=== PATIENT | male | born 1980 | race Caucasian/White ===

== ENCOUNTER → 2017-02-20 | Outpatient (CLI) | payer BC | LOC: MMGSC 14:11 | PROVIDERS: ATTEND Family Medicine | DX: L73.9 Follicular disorder, unspecified (principal) | CPT/HCPCS: 87070; 87075; 87205 ==

== ENCOUNTER 2018-02-06 05:40 | Day surgery (SDC) | payer BC, OTHER ==
[2018-02-02 09:20] VITALS: BMI 34.2
[~2018-02-06 05:40] MED LIST: ALBUTEROL NEB (CONC) 2.5 MG/0.5 ML INHALATION ONE; LACTATED RINGERS 1,000 ML IV ONE; LACTATED RINGERS 1,000 ML IV SCH; LIDOCAINE 2% (PF) 20 MG/ML 2 ML AMP INHALATION ONE
[2018-02-06 06:33] VITALS: TEMP 98.9
[2018-02-06] MEDS ORDERED: LIDOCAINE 1% 20 ML VIAL (10MG/ML) FOR IV START INTRADERMA ONE (06:33)
[2018-02-06] MEDS ORDERED: PROPOFOL 10 MG/ML 20 ML VIAL IV ONE (08:54)
[2018-02-06] MEDS ORDERED: MIDAZOLAM 2 MG/2 ML VIAL ONE (08:54)
[2018-02-06] MEDS ORDERED: KETAMINE 10 MG/ML 20 ML VIAL ONE (08:54)
--- NOTE | 2018-02-06 09:21 | P.PCN ---
Date of Procedure: 02/06/18 Preoperative Diagnosis: stridor Postoperative Diagnosis: subglottic stenosis Procedure(s) Performed: flexible bronchoscopy Anesthesia: MAC Surgeon: Pati Reyes Estimated Blood Loss (ml): 0 Pathology: other Condition: stable Disposition: same day Indications for Procedure: DYSPNEA/STRIDOR Operative Findings: a 37-year-old male patient was experiencing progressive increase in dyspnea and stridor, was found to have flattening of the inspiratory and expiratory, with flow volume loop curve, suspect have recurrent subglottic stenosis, came into the bronchoscopy room to undergo a flexible bronchoscopy. This procedure was done under conscious sedation with anesthetic agents being administered by anesthesia. The patient was given a combination of ketamine and Diprivan. After achieving adequate sedation, the flexible bronchoscope was introduced into the right nostril and pleasant with the upper airway. Examination of the posterior oropharynx was within normal limits. Bronchoscope was moved to the larynx and the visualized airways structures including the epiglottis, vallecula, arytenoids and the vocal cords. Arytenoids are quite swollen and individual arytenoids were not seen as the overlying mucosa was quite swollen. The vocal cords were functional and no vocal cord paralysis or lesions or abnormalities were noted. A total of 2 mL of 1% lidocaine was applied to the vocal cords and following that the bronchoscope was approached to visualize the subglottic area. At the level of the subglottic trachea, immediately under the vocal cords, there was an area of subglottic stenosis causing significant narrowing of the tracheal lumen, probably reducing the lumen caliber down to 7-8 mm in size. The patient was unable to tolerate intubation of the trachea with a flexible bronchoscope. Once the scope was passed through vocal cords, the patient started having cough and and experienced significant shortness of breath to the point where he was jumping off the bed. As such, the lower trachea structures were not accurately visualized. In fact, I was unable to go completely away examination as the patient was unable to tolerate intubation because of a tight subglottic stenosis. The flexible bronchoscope was immediately removed and the patient was bagged as he showed some signs of stridor which progressively improved. As the patient recovered from anesthesia, he became fully awake without any respiratory distress or hypoxemia or hypercapnia. He was able to speak full sentences. Final diagnoses critical subglottic stenosis. Patient needs to be seen by ENT. The patient will also need to be seen by interventional pulmonology services and I'll make contact for this patient to be seen at [facility]. The patient will be discharged home.
[2018-02-06 10:04] VITALS: BP 159/99; PULSE 72; RESP 20
== END 2018-02-06 10:10 | disposition home or self-care (01) ==
LOC: ORWHC2ENDO 05:40
PROVIDERS: ATTEND Internal Medicine Critical Care Medicine
DX: J38.6 Stenosis of larynx (principal); G47.33 Obstructive sleep apnea (adult) (pediatric); Z99.89 Dependence on other enabling machines and devices; E66.9 Obesity, unspecified; Z68.34 Body mass index [BMI] 34.0-34.9, adult; I10 Essential (primary) hypertension; Z79.899 Other long term (current) drug therapy
CPT/HCPCS: 94640; 31622; J2250; J2704; J2001; 31628

== ENCOUNTER 2018-03-23 05:15 | Emergency (ER) | payer OTHER ==
[2018-03-23 05:26] LABS: Glucose,Whole Blood 138 mg/dL (75-99)
[2018-03-23 05:29] VITALS: BP 82/36; PULSE 110; RESP 14
--- NOTE | 2018-03-23 06:02 | ED ---
CPR HPI - General Chief Complaint: Cardiac Arrest/CPR Stated Complaint: cardiac arrest Time Seen by Provider: 03/23/18 05:34 Source: EMS, RN notes reviewed, old records reviewed Mode of arrival: EMS Limitations: altered mental status - History of Present Illness Initial Comments: This is a 29-year-old male the ER for evaluation. Patient has history of tracheomalacia, patient had tracheal stent placed earlier or R yesterday was discharged home woke up with shortness of breath tonight place himself on CPAP and significantly decompensated. Patient lost pulses and stopped breathing of her family, upon EMS arrival patient again remained pulseless and CPR was started under ACLS protocol Complaint: found unresponsive, stopped breathing Onset/Timin -: minute(s) Place: home Bystander CPR Performed: No AED Applied by Bystander/Hvac/R Instructor: No Shock Advised: No Initial Findings in the Field: unresponsive, no pulse, other rhythm (Asystole) ROSC in the Field: No Associated Symptoms: shortness of breath Treatments Prior to Arrival: intubation, epinephrine mgs #, sodium bicarbonate, glucose - Related Data Home Medications Medication Instructions Recorded Confirmed Metoprolol Tartrate 25 mg PO HS 02/02/18 03/23/18 amLODIPine [Norvasc] 10 mg PO HS 02/02/18 03/23/18 Allergies Allergy/AdvReac Type Severity Reaction Status Date / Time No Known Allergies Allergy Verified 03/23/18 05:29 Review of Systems ROS Statement: Those systems with pertinent positive or pertinent negative responses have been documented in the HPI. ROS Other: All systems not noted in ROS Statement are negative. Past Medical History Past Medical History: Hypertension Additional Past Medical History / Comment(s): hx of subglottic stenosis, had trach from age 10months until 11 yrs old History of Any Multi-Drug Resistant Organisms: None Reported Additional Past Surgical History / Comment(s): tracheotomy, UPPP sx, sx for dev. septum, sx that took cartlidge from rib to esophogus, mult bronchoscopies, Past Anesthesia/Blood Transfusion Reactions: Postoperative Nausea & Vomiting ( PONV) Past Psychological History: No Psychological Hx Reported Smoking Status: Never smoker Past Alcohol Use History: Occasional Past Drug Use History: None Reported - Past Family History Mother Family Medical History: No Reported History General Exam Limitations: altered mental status General appearance: obtunded, in distress Head exam: Present: other (Subcutaneous emphysema) Eye exam: Present: other (Pupils 6 and dilated) ENT exam: Present: other (Blood in oropharynx, bilateral nature) Neck exam: Present: other (Subcutaneous emphysema) Respiratory exam: Present: normal lung sounds bilaterally (Breath sounds are equal and present bilaterally) Cardiovascular Exam: Present: other (Asystole) GI/Abdominal exam: Present: soft, normal bowel sounds. Absent: distended, tenderness, guarding, rebound, rigid Neurological exam: Present: other (No neurologic activity) Skin exam: Present: cyanosis, pallor, mottled Course Vital Signs 03/23/18 05:26 Pulse Rate 110 H Respiratory 14 Rate Blood Pressure 82/36 O2 Sat by Pulse 97 Oximetry - Reevaluation(s) Reevaluation #1: 03/23/18 06:25 High-quality CPR on insulin protocol was proceeded for 20 minutes here in the ER , greater than total 45 minutes. Patient remained asystolic with no return of spontaneous circulation, pupils remained fixed and dilated no breath sounds normal heart sounds or cardiac activity on ultrasound, patient pronounced at 0532 Reevaluation #2: 03/23/18 06:25 Spoke with family at length regarding patient's medical condition, questions are answered, family aware patient's passing Reevaluation #3: 03/23/18 06:25 Attempt made to reach patient's primary doctor Dr. Aponte, unable Reevaluation #4: 03/23/18 06:26 rn examiner aware of case Medical Decision Making - Medical Decision Making 37 male the ER for evaluation cardiopulmonary arrest hypoxic home in her cardiopulmonary arrest. Patient pronounced 0532 - Lab Data Lab Results 03/23/18 Range/Units 05:24 POC Glucose (mg/dL) 138 H (75-99) mg/dL POC Glu Statistical Programmer ID Leticia Julian Disposition Clinical Impression: Acute respiratory failure, Cardiac arrest Disposition: Referrals: Nancy Aponte MD [Primary Care Provider] - 1-2 days Preliminary Cause of : CPA,Hypoxia
== END 2018-03-23 11:00 | disposition expired ==
LOC: EC 05:15
DX: I46.9 Cardiac arrest, cause unspecified (principal); J96.00 Acute respiratory failure, unspecified whether with hypoxia or hypercapnia; I10 Essential (primary) hypertension; Z79.899 Other long term (current) drug therapy
CPT/HCPCS: 36415; 92950; 99285